=== PATIENT | male | born 2000 | race Hispanic/Latino ===

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

== ENCOUNTER 2021-08-24 16:46 | Emergency (ER) | payer BC, OTHER, SELFPAY ==
[2021-08-24] MEDS ORDERED: Acetaminophen 500 MG TAB ONE (16:59)
== END 2021-08-24 17:45 | disposition home or self-care (01) ==
LOC: ERS 16:46
DX: J02.9 Acute pharyngitis, unspecified (principal); R50.9 Fever, unspecified; Z79.899 Other long term (current) drug therapy
CPT/HCPCS: 87081; 87430; 99283